=== PATIENT | female | born 2000 | race Two or more races ===

== ENCOUNTER 2019-10-02 06:06 | Outpatient (CLI) | payer MEDICAID ==
[~2019-10-02] VITALS: Ht 157.5 cm; Wt 65.9 kg
[2019-10-02 06:15] VITALS: BP 121/73
[2019-10-02] MEDS ORDERED: IRON1TAB60 PO (06:21)
[2019-10-02] MEDS ORDERED: PREN-3 PO (06:21)
[2019-10-02] MEDS ORDERED: FLU VACC QS2019-20 36MOS UP/PF 0.5 ML IM-VACC ONE (07:00)
== END 2019-10-02 07:24 | disposition home or self-care (01) ==
LOC: LDOP 06:06
PROVIDERS: ATTEND Obstetrics & Gynecology
DX: Z23 Encounter for immunization (principal); O42.90 Premature rupture of membranes, unspecified as to length of time between rupture and onset of labor, unspecified weeks of gestation; Z3A.00 Weeks of gestation of pregnancy not specified
CPT/HCPCS: 59025; 89060; 90471; 90686; 96372; 99211; G0008; G0463; Q0114

== ENCOUNTER 2019-10-07 14:13 | Inpatient (IN) | payer MEDICAID ==
[~2019-10-07] VITALS: Ht 157.5 cm; Wt 67.0 kg
[~2019-10-07 14:13] MED LIST: IRON1TAB60 PO; PREN-3 PO
[2019-10-07] MEDS ORDERED: OXYTOCIN 30U/ 0.9% NaCL 500ML 500 ML IV ONE (15:36)
[2019-10-07] MEDS: D5%-LACTATED RINGERS 1,000 ML IV SCH ×2 (15:36→20:57)
[2019-10-07] MEDS: LACTATED RINGERS 1,000 ML IV SCH ×2 (15:36→20:57)
[2019-10-07] MEDS ORDERED: FENTANYL PF 100 MCG/2ML IV PRN (16:00)
[2019-10-07] MEDS ORDERED: ONDANSETRON 2MG/ML, 2ML IVPush PRN (16:00)
[2019-10-07] MEDS ORDERED: CALCIUM CARBONATE 500 MG TAB.CHEW PO PRN (16:00)
[2019-10-07] MEDS ORDERED: PLEASE ENTER HEIGHT AND WEIGHT MC SCH (16:00)
[2019-10-07] MEDS ORDERED: TERBUTALINE 1 MG/ML, 1ML SQ PRN (16:00)
[2019-10-07] MEDS ORDERED: TERBUTALINE 1 MG/ML, 1ML IVPush PRN (16:00)
[2019-10-07] MEDS ORDERED: FENTANYL PF 100 MCG/2ML IVPush PRN (16:00)
[2019-10-07 16:02] LABS: BASOPHILS # (AUTO) 0.02 x10^3/uL (0-0.3); BASOPHILS % (AUTO) 0 % (0-1); EOSINOPHILS # (AUTO) 0.15 x10^3/uL (0-0.8); EOSINOPHILS % (AUTO) 2 % (1-7); LYMPHOCYTES # (AUTO) 1.31 x10^3/uL (1-6.1); LYMPHOCYTES % (AUTO) 14 % (22-44); MD NO; MEAN CORPUSCULAR HEMOGLOBIN 28.1 pg (27.0-34.8); MEAN CORPUSCULAR HGB CONC 32.4 g/dL (32.4-35.8); MEAN CORPUSCULAR VOLUME 86.8 fL (80-100); MEAN PLATELET VOLUME 8.8 fL (7.4-10.4); MONOCYTES # (AUTO) 0.62 x10^3/uL (0-1.4); MONOCYTES % (AUTO) 6 % (2-9); NEUTROPHILS # (AUTO) 7.61 x10^3/uL (1.8-8.0); NEUTROPHILS % (AUTO) 78 % (42-75); PLATELET COUNT 243 x10^3/uL (130-400); RED BLOOD COUNT 3.61 x10^6/uL (3.82-5.3); RED CELL DISTRIBUTION WIDTH 16.3 % (9.6-15.2)
[2019-10-07] MEDS ORDERED: OXYTOCIN 30U/ 0.9% NaCL 500ML 500 ML ONE (17:21)
[2019-10-07] MEDS ORDERED: NEWBORN KIT ONE (17:21)
[2019-10-07] MEDS ORDERED: FENTANYL/BUPIV./NS/PF 250 ML EPIDCONT SCH (18:53)
[2019-10-07] MEDS ORDERED: FENTANYL PF 100 MCG/2ML ONE (18:58)
[2019-10-07] MEDS ORDERED: BUPIVACAINE 0.25% ONE (19:44)
[2019-10-07] MEDS ORDERED: ACETAMINOPHEN 325 MG TABLET ONE (21:25)
[2019-10-07] MEDS ORDERED: AMPICILLIN 2 GM in SODIUM CHLORIDE 0.9% 100 ML IV SCH (21:30)
[2019-10-07] MEDS ORDERED: ACETAMINOPHEN 325 MG TABLET PO PRN (21:30)
[2019-10-07] MEDS ORDERED: GENTAMICIN PER PHARMACY MC PRN (21:30)
[2019-10-07] MEDS ORDERED: PHARMACOKINETIC MONITORING MC PRN (21:30)
[2019-10-07] MEDS ORDERED: PHARMACOKINETIC CONSULTATION MC ONE (21:30)
[2019-10-07] MEDS ORDERED: GENTAMICIN 340 MG in SODIUM CHLORIDE 0.9% 100 ML IV SCH (22:00)
[2019-10-08] MEDS ORDERED: IBUPROFEN 800 MG TABLET ONE (01:24)
[2019-10-08] MEDS ORDERED: OXYTOCIN 30U/ 0.9% NaCL 500ML 500 ML ONE (01:24)
[2019-10-08] MEDS: OXYTOCIN 30U/ 0.9% NaCL 500ML 500 ML IV SCH ×3 (01:25→21:08)
[2019-10-08] MEDS: IBUPROFEN 800 MG TABLET PO PRN ×2 (01:26→20:24)
[2019-10-08] MEDS: LACTATED RINGERS 1,000 ML IV SCH (01:29)
[2019-10-08] MEDS ORDERED: SIMETHICONE 80 MG CHEW TAB PO PRN (01:30)
[2019-10-08] MEDS ORDERED: CARBOPROST TROMETHAMINE 250 MCG/ML, 1ML IM PRN (01:30)
[2019-10-08] MEDS ORDERED: TRANEXAMIC ACID 100 MG/ML, 10ML IV ONE (01:30)
[2019-10-08] MEDS ORDERED: MISOPROSTOL 200 MCG TABLET PR PRN (01:30)
[2019-10-08] MEDS ORDERED: ONDANSETRON 2MG/ML, 2ML IV PRN (01:30)
[2019-10-08] MEDS ORDERED: OXYcodone/APAP 5/325MG TABLET PO PRN ×2 (01:30)
[2019-10-08] MEDS ORDERED: METHYLERGONOVINE 0.2 MG/ML IM PRN (01:30)
[2019-10-08 03:20] VITALS: BP 109/74
[2019-10-08] MEDS: AMPICILLIN 2 GM in SODIUM CHLORIDE 0.9% 100 ML IV SCH ×4 (03:29→21:39)
[2019-10-08 08:00] VITALS: BP 108/53
[2019-10-08 08:24] LABS: MEAN CORPUSCULAR HEMOGLOBIN 27.6 pg (27.0-34.8); MEAN CORPUSCULAR HGB CONC 32.5 g/dL (32.4-35.8); MEAN CORPUSCULAR VOLUME 84.9 fL (80-100); MEAN PLATELET VOLUME 8.6 fL (7.4-10.4); PLATELET COUNT 245 x10^3/uL (130-400); RED BLOOD COUNT 2.91 x10^6/uL (3.82-5.3); RED CELL DISTRIBUTION WIDTH 16.2 % (9.6-15.2)
[2019-10-08 08:32] LABS: BASOPHILS # (AUTO) 0.01 x10^3/uL (0-0.3); BASOPHILS % (AUTO) 0 % (0-1); EOSINOPHILS % (AUTO) 0 % (1-7); LYMPHOCYTES # (AUTO) 1.02 x10^3/uL (1-6.1); LYMPHOCYTES % (AUTO) 7 % (22-44); MD SCAN; MONOCYTES # (AUTO) 0.51 x10^3/uL (0-1.4); MONOCYTES % (AUTO) 3 % (2-9); NEUTROPHILS % (AUTO) 90 % (42-75)
[2019-10-08 12:00] VITALS: BP 107/56
[2019-10-08] MEDS: PRENATAL VIT/IRON/FA 1 EACH TABLET PO SCH (12:08)
[2019-10-08] MEDS: DOCUSATE 100 MG CAPSULE PO PRN ×2 (12:08→20:25)
[2019-10-08 20:15] VITALS: BP 108/68
[2019-10-08] MEDS ORDERED: GENTAMICIN 280 MG in SODIUM CHLORIDE 0.9% 100 ML IV SCH (22:00)
[2019-10-08] MEDS ORDERED: GENTAMICIN 340 MG in SODIUM CHLORIDE 0.9% 100 ML IV SCH (22:00)
[2019-10-09 00:09] VITALS: BP 93/54
[2019-10-09] MEDS: IBUPROFEN 800 MG TABLET PO PRN ×2 (04:30→13:00)
[2019-10-09] MEDS: OXYTOCIN 30U/ 0.9% NaCL 500ML 500 ML IV SCH ×2 (07:08→17:08)
[2019-10-09 07:35] VITALS: BP 93/59
[2019-10-09] MEDS: PRENATAL VIT/IRON/FA 1 EACH TABLET PO SCH (10:02)
[2019-10-09] MEDS: DOCUSATE 100 MG CAPSULE PO PRN (10:02)
[2019-10-09 20:40] VITALS: BP 96/60
[2019-10-10] MEDS: OXYTOCIN 30U/ 0.9% NaCL 500ML 500 ML IV SCH (03:08)
[2019-10-10] MEDS ORDERED: FERROUS GLUCONATE 324 MG TABLET PO SCH (08:30)
[2019-10-10] MEDS: PRENATAL VIT/IRON/FA 1 EACH TABLET PO SCH (10:17)
[2019-10-10] MEDS: IBUPROFEN 800 MG TABLET PO PRN (10:17)
[2019-10-10] MEDS ORDERED: IBUP100T6 PO (10:55)
[2019-10-10] MEDS ORDERED: DIPH,PERTUSS(ACELL),TET VAC/PF NC IM-VACC ONE (14:00)
== END 2019-10-10 14:20 | disposition home or self-care (01) | DRG 560 ==
LOC: LDOP 14:13 → LDIP 15:34 → 2NW 10-08 03:46
PROVIDERS: ADMIT Obstetrics & Gynecology; ATTEND Obstetrics & Gynecology
PROC: 10E0XZZ Delivery of Products of Conception, External Approach (ICD-10-PCS; principal; 2019-10-08)
PROC: 0UQGXZZ Repair Vagina, External Approach (ICD-10-PCS; 2019-10-08)
PROC: 3E0R3BZ Introduction of Anesthetic Agent into Spinal Canal, Percutaneous Approach (ICD-10-PCS; 2019-10-08)
PROC: 00HU33Z Insertion of Infusion Device into Spinal Canal, Percutaneous Approach (ICD-10-PCS; 2019-10-08)
DX: O69.81X0 Labor and delivery complicated by cord around neck, without compression, not applicable or unspecified (principal); O71.4 Obstetric high vaginal laceration alone; Z37.0 Single live birth; Z3A.38 38 weeks gestation of pregnancy
CPT/HCPCS: G0378; J0290; J3010; J3490; J1580; J2590; J7120; J7121